=== PATIENT | male | born 1995 | race Caucasian/White ===

== ENCOUNTER 2018-03-07 16:21 | Emergency (ER) | payer BC ==
[2018-03-07] MEDS ORDERED: BACIGUENT PACKET TP ONE (17:25)
[2018-03-07] MEDS ORDERED: Adacel Vial IM ONE ×2 (17:25→17:32)
[2018-03-07] MEDS ORDERED: BACIGUENT PACKET ONE (17:29)
--- NOTE | 2018-03-07 17:31 | ERPHSYRPT ---
- History of Present Illness Time Seen by Provider: 03/07/18 17:25 Source: patient Exam Limitations: no limitations Patient Subjective Stated Complaint: got leg caught on barbed wire cannot remember when last tetanis shot was Triage Nursing Assessment: patient alert and orietnedx3, lung sounds clear, gait steady able to ambulate well, small puncture wounds to upper left leg, no other injuries noted skin warm dry and intact Physician History: 22 year old white male arrives with complaint of several puncture wounds on his left thigh since 14:00 today. The patient states he caught his leg on barbed wire. he is not sure when his last tetanus was. he denies previous medical problems Timing/Duration: today Severity: mild Modifying Factors: Improves With: nothing Associated Symptoms: denies symptoms Allergies/Adverse Reactions: ibuprofen Allergy (Verified 06/19/14 22:49) Home Medications: No Home Meds [No Home Meds] 1 [facility] 06/19/14 [History] Hx Tetanus, Diphtheria Vaccination/Date Given: (unknown) Hx Influenza Vaccination/Date Given: No Hx Pneumococcal Vaccination/Date Given: No - Review of Systems Constitutional: No Fever, No Chills Eyes: No Symptoms Ears, Nose, & Throat: No Symptoms Respiratory: No Cough, No Dyspnea Cardiac: No Chest Pain, No Edema, No Syncope Abdominal/Gastrointestinal: No Abdominal Pain, No Nausea, No Vomiting, No Diarrhea Genitourinary Symptoms: No Dysuria Musculoskeletal: No Back Pain, No Neck Pain Skin: Other (several puncture wounds left thigh) Neurological: No Dizziness, No Focal Weakness, No Sensory Changes Psychological: No Symptoms Endocrine: No Symptoms All Other Systems: Reviewed and Negative - Past Medical History Pertinent Past Medical History: No Neurological History: No Pertinent History Musculoskeletal History: Other Psycho-Social History: Depression - Past Surgical History Past Surgical History: No - Social History Smoking Status: Current every day smoker Exposure to second hand smoke: Yes Alcohol Use: None Drug Use: none Patient Lives Alone: Yes Significant Family History: no pertinent family hx - Nursing Vital Signs Nursing Vital Signs: Initial Vital Signs Temperature 99.1 F 03/07/18 16:21 Pulse Rate 117 H 03/07/18 16:21 Respiratory Rate 18 03/07/18 16:21 Blood Pressure 121/70 03/07/18 16:21 O2 Sat by Pulse Oximetry 98 03/07/18 16:21 Pain Scale Pain Intensity 5 - Physical Exam General Appearance: no apparent distress, alert Eye Exam: PERRL/EOMI, eyes nml inspection Ears, Nose, Throat Exam: normal ENT inspection, TMs normal, pharynx normal, moist mucous membranes Neck Exam: normal inspection, non-tender, supple, full range of motion Respiratory Exam: normal breath sounds, lungs clear, No respiratory distress Cardiovascular Exam: regular rate/rhythm, normal heart sounds, normal peripheral pulses Gastrointestinal/Abdomen Exam: soft, normal bowel sounds, No tenderness, No mass Back Exam: normal inspection, normal range of motion, No CVA tenderness, No vertebral tenderness Extremity Exam: normal range of motion, other (several small puncture wounds left medial thigh) Neurologic Exam: alert, oriented x 3, cooperative, normal mood/affect, nml cerebellar function, nml station & gait, sensation nml, No motor deficits Skin Exam: other (several small puncture wounds left medial thigh) Lymphatic Exam: No adenopathy SpO2 Interpretation: normal (98%) SpO2: 98 Oxygen Delivery: Room Air - Course Nursing assessment & vital signs reviewed: Yes Ordered Tests: Active Orders 24 hr Category Date Time Status Wound Care STAT Care 03/07/18 17:25 Active - Progress Progress: improved Progress Note: 03/07/18 17:31 This is a 22-year-old white male who arrives with complaint of several small puncture wounds on his left proximal thigh medially he states he got caught on [place]. He has full range of motion to all extremities good capillary refill to all extremities he is not sure when his last tetanus was. Will have nurses clean the area apply bacitracin and give patient DTaP. . - Departure Time of Disposition: 17:32 Departure Disposition: Home Clinical Impression: puncture wounds left thigh Condition: Fair Critical Care Time: No Referrals: BIA ESPARZA [Primary Care Provider] - Additional Instructions: Return home. Bacitracin to the puncture wounds until healed. Tylenol every 4 hours as needed for pain. Follow-up with your family doctor if signs of infection or problems. Return for acute distress or for severe symptoms.
[2018-03-07 17:40] VITALS: BP 113/77; PULSE 104; O2SAT 97
== END 2018-03-07 17:43 | disposition home or self-care (01) ==
LOC: ED 16:21
DX: S71.132A Puncture wound without foreign body, left thigh, initial encounter (principal); W45.8XXA Other foreign body or object entering through skin, initial encounter
CPT/HCPCS: 90471; 90715; 99283; A9270-GY